=== PATIENT | male | born 1995 | race Caucasian/White ===

== ENCOUNTER 2018-04-26 17:03 | Emergency (ER) | payer OTHER ==
[~2018-04-26] VITALS: Ht 195.6 cm; Wt 133.8 kg
[2018-04-26] MEDS ORDERED: NORCO 5-325 TA1 EAC1 PO (18:27)
[2018-04-26 18:38] VITALS: BP 128/73
== END 2018-04-26 18:38 | disposition home or self-care (01) ==
LOC: M.ERS 17:03
DX: S32.038A Other fracture of third lumbar vertebra, initial encounter for closed fracture (principal); V89.2XXA Person injured in unspecified motor-vehicle accident, traffic, initial encounter; Y93.89 Activity, other specified; Y92.89 Other specified places as the place of occurrence of the external cause; Y99.8 Other external cause status